=== PATIENT | male | born 1990 | race Caucasian/White ===

== ENCOUNTER 2019-12-10 04:20 | Emergency (ER) | payer OTHER ==
[~2019-12-10] VITALS: Ht 172.7 cm; Wt 81.8 kg
[2019-12-10 04:26] VITALS: BP 135/91; TEMP 98.7
[2019-12-10] MEDS ORDERED: TYLENOL W/COD1 UDTAB PO (04:49)
[2019-12-10] MEDS ORDERED: ZITHROMAX TRI-500 MG PO (04:49)
[2019-12-10 05:15] VITALS: PULSE 88
== END 2019-12-10 05:15 | disposition home or self-care (01) ==
LOC: COL.ER 04:20
DX: J20.9 Acute bronchitis, unspecified (principal); B34.9 Viral infection, unspecified

== ENCOUNTER 2020-04-19 13:34 | Emergency (ER) | payer OTHER ==
[~2020-04-19] VITALS: Ht 177.8 cm; Wt 75.0 kg
[~2020-04-19 13:34] MED LIST: TYLENOL W/COD1 UDTAB PO; ZITHROMAX TRI-500 MG PO
[2020-04-19 13:41] VITALS: BP 130/80; TEMP 97.9
[2020-04-19 14:17] LABS: BASO # 0.1 (0.0-0.2); BASO % 1.1 % (0.0-2.0); EOS # 0.2 (0.0-0.7); EOS % 2.7 % (0-4.0); GRAN # 3.5 (1.4-6.5); GRAN % 54.1 % (42.2-75.2); HEMATOCRIT 40.3 % (42.0-52.0); HEMOGLOBIN 12.3 g/dl (13.5-18.0); MEAN CELL VOLUME 61 fl (80.0-100.0); MEAN CORPUSCULAR HEMOGLOBIN 19 pg (27.0-31.0); MEAN CORPUSCULAR HGB CONC 31 g/dl (33.0-37.0); MONO # 0.7 (0.1-0.6); MONO % 10.3 % (1.7-9.3); PLATELET COUNT 230 K/mm3 (130-400); RED BLOOD COUNT 6.61 M/mm3 (4.20-5.60); REDCELL DISTRIBUTION WIDTH-CV 19.1 % (11.5-14.5)
[2020-04-19 14:27] LABS: ALBUMIN 4.6 gm/dL (3.5-5.0); BILIRUBIN,TOTAL 0.9 mg/dL (0.0-1.0); CALCIUM 9.4 mg/dL (8.4-10.2); CREATININE, serum 0.87 (0.66-1.25); POTASSIUM 4.1 mmol/L (3.4-5.0); TOTAL PROTEIN 7.4 gm/dL (6.4-8.2)
[2020-04-19 14:57] LABS: TSH w REFLEX 1.05 uIU/mL (0.465-4.680)
[2020-04-19] MEDS ORDERED: FOLIC ACID 11 MG/TA1 PO (15:12)
[2020-04-19 15:16] LABS: COLLECTION METHOD CLEAN CATCH
[2020-04-19 15:30] LABS: MUCOUS Present /lpf; PH 6 (5-8); SQUAMOUS EPITHELIAL 0-2 /hpf; URINE APPEARANCE Clear; URINE BACTERIA None Seen /hpf; URINE BILIRUBIN Negative (NEGATIVE); URINE BLOOD Negative (NEGATIVE); URINE COLOR Yellow; URINE GLUCOSE Negative (NEGATIVE); URINE KETONE Negative (NEGATIVE); URINE LEUKOCYTE ESTERASE Negative (NEGATIVE); URINE NITRATE Negative (NEGATIVE); URINE PROTEIN(semi-quant) Negative (NEGATIVE); URINE RBC None Seen /hpf; URINE UROBILINOGEN Negative (NEGATIVE)
[2020-04-19 16:11] VITALS: PULSE 72
== END 2020-04-19 16:11 | disposition home or self-care (01) ==
LOC: COL.ER 13:34
PROVIDERS: Emergency Medicine
DX: D64.9 Anemia, unspecified (principal); Z83.2 Family history of diseases of the blood and blood-forming organs and certain disorders involving the immune mechanism

== ENCOUNTER 2021-10-02 19:21 | Emergency (ER) | payer OTHER ==
[~2021-10-02 19:21] MED LIST changes: +FOLIC ACID 11 MG/TA1 PO
== END 2021-10-02 20:05 | disposition left against medical advice (07) ==
LOC: COL.ER 19:21
DX: R69 Illness, unspecified (principal)